=== PATIENT | male | born 2000 | race Caucasian/White ===

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

== ENCOUNTER 2020-06-30 12:51 | Observation (INO) | payer OTHER ==
[2020-06-30] MEDS ORDERED: ACETAMINOPHEN TAB 500 MG TAB PO STA (13:28)
[2020-06-30] MEDS ORDERED: SODIUM CHLORIDE 0.9% 1,000 ML IV STA (13:28)
[2020-06-30] MEDS ORDERED: VANCOMYCIN IV PER PHARMACY 1 EACH MISC MISCELLANE PRN (13:28)
[2020-06-30] MEDS ORDERED: KETOROLAC 15 MG/ML 1 ML VIAL IVP STA (13:29)
[2020-06-30] MEDS ORDERED: LIDOCAINE 1% INJ 10MG/ML (20 ML MDV) SQ ONE (13:30)
[2020-06-30] MEDS ORDERED: VANCOMYCIN 1,500 MG in SODIUM CHLORIDE 0.9% 250 ML IVPB STA (13:33)
--- NOTE | 2020-06-30 13:36 | ED ---
General Adult HPI - General Chief complaint: Skin/Abscess/Foreign Body Stated complaint: Abcess in armpit Time Seen by Provider: 06/30/20 13:07 Source: patient, RN notes reviewed, old records reviewed Mode of arrival: ambulatory Limitations: no limitations - History of Present Illness Initial comments: 19-year-old male with 2 days of pain and swelling in his right upper and right upper extremity. He does report fever and chills. He states this started as what he thought was an ingrown hair. He did attempt to remove with tweezers. He shaved his armpits. He's noticed swelling and erythema from the axilla to his elbow. - Related Data Home Medications Medication Instructions Recorded Confirmed No Known Home Medications 06/30/20 06/30/20 Allergies Allergy/AdvReac Type Severity Reaction Status Date / Time No Known Allergies Allergy Verified 06/30/20 13:32 Review of Systems ROS Statement: Those systems with pertinent positive or pertinent negative responses have been documented in the HPI. ROS Other: All systems not noted in ROS Statement are negative. Past Medical History Past Medical History: No Reported History History of Any Multi-Drug Resistant Organisms: None Reported Past Surgical History: No Surgical Hx Reported Past Psychological History: No Psychological Hx Reported Smoking Status: Never smoker Past Alcohol Use History: Rare Past Drug Use History: None Reported General Exam Limitations: no limitations General appearance: alert, in no apparent distress Head exam: Present: atraumatic, normocephalic Eye exam: Present: normal appearance, PERRL ENT exam: Present: normal exam Neck exam: Present: normal inspection. Absent: tenderness, meningismus Respiratory exam: Present: normal lung sounds bilaterally. Absent: respiratory distress, wheezes Cardiovascular Exam: Present: normal rhythm, tachycardia GI/Abdominal exam: Present: soft. Absent: distended, tenderness, guarding, rebound Extremities exam: Present: other (3 cm x 3 cm fluctuant abscess in the right axilla, there is cellulitis tracking from the abscess to the and his elbow with induration.) Neurological exam: Present: alert, oriented X3, CN II-XII intact. Absent: motor sensory deficit Psychiatric exam: Present: normal affect, normal mood Skin exam: Present: warm, dry Course Vital Signs 06/30/20 12:54 Temperature 101 F H Pulse Rate 128 H Respiratory 18 Rate Blood Pressure 137/75 O2 Sat by Pulse 99 Oximetry Procedures - Incision & Drainage Consent Obtained: written consent Indication: abscess Site: upper extremity Anesthetic Used: lidocaine 1% Amount (mLs): 5 I&D Cleaning Method: Alcohol Wipe Sterile Field Used?: Yes Scalpel Used: #11 Needle Aspiration Performed?: Yes Irrigation Performed?: No I&D Drainage Obtained: Pus, Blood Packing: Plain Culture Obtained?: Yes Medical Decision Making - Medical Decision Making 19-year-old male with a large abscess in his right axilla with cellulitis spreading from the abscess to beyond the elbow.abscess drained in the emergency department, IV antibiotics initiated. Patient is febrile, tachycardic, elevated white blood cell count. He will be admitted for close monitoring, continued IV antibiotics. Case has been discussed with Dr. Ortega Will Admit the patient. - Lab Data Result diagrams: 06/30/20 13:56 06/30/20 13:56 Lab Results 06/30/20 06/30/20 06/30/20 Range/Units 13:56 13:56 13:56 WBC 20.4 H (4.0-11.0) k/uL RBC 5.17 (4.30-5.90) m/uL Hgb 15.0 (13.0-17.5) gm/dL Hct 45.0 (39.0-53.0) % MCV 87.1 (80.0-100.0) fL MCH 28.9 (25.0-35.0) pg MCHC 33.2 (31.0-37.0) g/dL RDW 12.2 (11.5-15.5) % Plt Count 293 (150-450) k/uL Neutrophils % 86 % Lymphocytes % 8 % Monocytes % 4 % Eosinophils % 1 % Basophils % 1 % Neutrophils # 17.6 H (1.3-7.7) k/uL Lymphocytes # 1.6 (1.0-4.8) k/uL Monocytes # 0.8 (0-1.0) k/uL Eosinophils # 0.1 (0-0.7) k/uL Basophils # 0.2 (0-0.2) k/uL Sodium 135 L (137-145) mmol/L Potassium 3.8 (3.5-5.1) mmol/L Chloride 96 L (98-107) mmol/L Carbon Dioxide 27 (22-30) mmol/L Anion Gap 12 mmol/L BUN 10 (9-20) mg/dL Creatinine 0.94 (0.66-1.25) mg/dL Est GFR (CKD-EPI)AfAm >90 (>60 ml/min/1.73 sqM) Est GFR (CKD-EPI)NonAf >90 (>60 ml/min/1.73 sqM) Glucose 106 H (74-99) mg/dL Plasma Lactic Acid Edmundo 0.9 (0.7-2.0) mmol/L Calcium 10.1 (8.4-10.2) mg/dL Total Bilirubin 1.0 (0.2-1.3) mg/dL AST 30 (17-59) U/L ALT 21 (4-49) U/L Alkaline Phosphatase 92 (38-126) U/L Total Protein 8.3 H (6.3-8.2) g/dL Albumin 4.9 (3.5-5.0) g/dL Disposition Clinical Impression: Abscess, Cellulitis Disposition: ADMITTED IP TO THIS [facility] Condition: Stable Is patient prescribed a controlled substance at d/c from ED?: No Referrals: None,Stated [Primary Care Provider] - 1-2 days Decision to Admit Reason: Admit from EC Decision Date: 06/30/20 Decision Time: 15:04
[2020-06-30 14:11] LABS: Basophils # (A) 0.2 k/uL (0-0.2); Basophils % (A) 1 %; Eosinophils # (A) 0.1 k/uL (0-0.7); Eosinophils % (A) 1 %; Lymphocytes # (A) 1.6 k/uL (1.0-4.8); Lymphocytes % (A) 8 %; MCH 28.9 pg (25.0-35.0); MCHC 33.2 g/dL (31.0-37.0); MCV 87.1 fL (80.0-100.0); Mean Platelet Volume 7.6; Monocytes # (A) 0.8 k/uL (0-1.0); Monocytes % (A) 4 %; Neutrophils # (A) 17.6 k/uL (1.3-7.7); Neutrophils % (A) 86 %; Platelet Count 293 k/uL (150-450); RBC 5.17 m/uL (4.30-5.90); RDW 12.2 % (11.5-15.5); WBC 20.4 k/uL (4.0-11.0)
[2020-06-30 14:22] LABS: ALT 21 U/L (4-49); AST 30 U/L (17-59); African American GFR (CKD) >90 (>60 ml/min/1.73 sqM); Albumin 4.9 g/dL (3.5-5.0); Alkaline Phosphatase 92 U/L (38-126); Anion Gap 12 mmol/L; Blood Urea Nitrogen 10 mg/dL (9-20); Calcium 10.1 mg/dL (8.4-10.2); Carbon Dioxide 27 mmol/L (22-30); Chloride 96 mmol/L (98-107); Glucose 106 mg/dL (74-99); Non-African American GFR(CKD) >90 (>60 ml/min/1.73 sqM); Potassium 3.8 mmol/L (3.5-5.1); Sodium 135 mmol/L (137-145); Total Protein 8.3 g/dL (6.3-8.2)
[2020-06-30] MEDS ORDERED: KETOROLAC 15 MG/ML 1 ML VIAL IVP PRN (15:00)
[2020-06-30] MEDS ORDERED: NALOXONE 0.4 MG/ML 1 ML VIAL IV PRN (15:00)
[2020-06-30] MEDS ORDERED: ACETAMINOPHEN TAB 325 MG TAB PO PRN (15:00)
[2020-06-30] MEDS: SODIUM CHLORIDE 0.9% 1,000 ML IV SCH (15:29)
[2020-06-30] MEDS ORDERED: HYDROcodone/APAP 5-325MG 1 EACH TAB PO PRN (16:17)
[2020-06-30] MEDS ORDERED: ONDANSETRON 4 MG/2 ML VIAL IVP PRN (16:17)
[2020-06-30] MEDS ORDERED: MELATONIN 3 MG TABLET PO PRN (16:17)
--- NOTE | 2020-06-30 16:47 | P.HPIM ---
History of Present Illness H&P Date: 06/30/20 Chief Complaint: arm pain Patient is a 19-year-old male with no significant past medical history who presented to the emergency department for right upper extremity swelling and pain of 2 days' duration. In the ER he underwent an extensive evaluation. His febrile to 101 on arrival. Blood work showed a white blood cell count 20.4. In the ER he had an abscess I&D from his right arm with return of 50-60 mL of purulent material and this was sent for culture. He was admitted for abscess and cellulitis with sepsis. Patient seen adn examined at bedside. He reports that 2 days ago he started noticing swelling and redness in his right axilla. Yesterday continued to wors en and he attempted to shave the armpit and use a diabetic syringe to drain the pus. He states that he has been feeling very tired and fatigued. He denies any fevers at home. He reports that he was using a heating pad and tried soaking bread in milk and placing on the area overnight. He reports IVDA use in the anticubital fossa approximately 1 week ago and was not sharing but was reusing needles. Review of Systems Pertinent positives and negatives as discussed in HPI, a complete review of systems was performed and all other systems are negative. Past Medical History Past Medical History: No Reported History History of Any Multi-Drug Resistant Organisms: None Reported Past Surgical History: No Surgical Hx Reported Past Psychological History: No Psychological Hx Reported Smoking Status: Vaper Past Alcohol Use History: Rare Past Drug Use History: Heroin, IV Drug Use - Past Family History Father Family Medical History: No Reported History Additional Family Medical History / Comment(s): Father is healthy Mother Family Medical History: No Reported History Additional Family Medical History / Comment(s): Mother is healthy Medications and Allergies Home Medications Medication Instructions Recorded Confirmed Type No Known Home Medications 06/30/20 06/30/20 History Allergies Allergy/AdvReac Type Severity Reaction Status Date / Time No Known Allergies Allergy Verified 06/30/20 13:32 Physical Exam Osteopathic Statement: *. No significant issues noted on an osteopathic structural exam other than those noted in the History and Physical/Consult. Vitals: Vital Signs Temp Pulse Resp BP Pulse Ox 06/30/20 12:54 101 F H 128 H 18 137/75 99 Intake and Output 1006/30/20 06/30/20 06:59 14:59 22:59 Other: Weight 72.575 kg General: non toxic, no distress, appears older than stated age Derm: redness right axilla right drained area with packing in place, erythema from right Axilla to right elbow no palpable veins in right axilla, warm, dry, multiple tattoos Head: atraumatic, normocephalic, symmetric Eyes: EOMI, no lid lag, anicteric sclera, pupils equal round reactive to light ENT: Nose and ears atraumatic, no thrush, no pharyngeal erythema, no lymphadenopathy Neck: No thyromegaly, no cervical lymphadenopathy, trachea midline, supple Mouth: no lip lesion, mucus membranes moist Cardiovascular: S1S2 reg, no murmur, positive posterior tibial pulse bilateral, no edema, capillary refill less than 2 seconds Lungs: clear to ascultation bilateral, no ronchi, no rales, no wheeze, no accessory muscle use Abdominal: soft, nontender to palpation, no guarding, no appreciable organomegaly, normal bowel sounds Ext: no gross muscle atrophy, muscle strength muscle strength 5 out of 5 in all 4 extremities, no contractures Neuro: CN II-XI grossly intact, light touch intact all 4 extremities, finger to nose within normal limits, Psych: Alert, oriented, appropriate affect Results CBC & Chem 7: 06/30/20 13:56 06/30/20 13:56 Labs: Abnormal Lab Results - Last 24 Hours (Table) 06/30/20 06/30/20 Range/Units 13:56 13:56 WBC 20.4 H (4.0-11.0) k/uL Neutrophils # 17.6 H (1.3-7.7) k/uL Sodium 135 L (137-145) mmol/L Chloride 96 L (98-107) mmol/L Glucose 106 H (74-99) mg/dL Total Protein 8.3 H (6.3-8.2) g/dL Thrombosis Risk Factor Assmnt - DVT/VTE Prophylaxis DVT/VTE Prophylaxis: Low risk, early ambulation encouraged Assessment and Plan Assessment: Right Axially abscess with surrounding cellulitis and sepsis - vanco - IVF - Pain control - monitor area of redness - packing in place - Await wound and blood culture - outline area of erythema. IVDA - Abstain from drug use - info on safe needle practices - check Hep profile and HIV The patient is admitted with an anticipated greater than 2 midnight stay for evaluation of Abscess and cellulitis with sepsis. Surrogate decision-maker: mother CODE STATUS:full DVT prophylaxis: scds Discussed with: patient, nursing, ED physician Anticipated discharge date: in 2-[address]: home A total of 65 minutes was spent on the care of this complex patient more than 50% of the time was spent in counseling and care coordination.
[2020-06-30] MEDS: MORPHINE SULFATE 4 MG/ML SYRINGE IV PRN (21:23)
[2020-06-30] MEDS: VANCOMYCIN 1,250 MG in SODIUM CHLORIDE 0.9% 250 ML IVPB SCH (23:54)
[2020-07-01 01:43] LABS: Hepatitis A Antibody IgM Non-Reactive (Non-Reactive); Hepatitis B Core IgM Non-Reactive (Non-Reactive); Hepatitis B Surface Antigen Non-Reactive (Non-Reactive); Hepatitis C IgG Antibody Non-Reactive (Non-Reactive)
[2020-07-01 01:48] LABS: HIV 2 AB Non-Reactive (Non-Reactive); HIV AB P24 Non-Reactive (Non-Reactive); HIV P24 AG Non-Reactive (Non-Reactive)
[2020-07-01] MEDS: MORPHINE SULFATE 4 MG/ML SYRINGE IV PRN (02:35)
[2020-07-01] MEDS: SODIUM CHLORIDE 0.9% 1,000 ML IV SCH ×2 (02:39→09:35)
[2020-07-01 05:46] VITALS: BP 120/80; PULSE 95; RESP 18; TEMP 98.1
[2020-07-01 06:32] LABS: HCT 40.5 % (39.0-53.0); HGB 13.4 gm/dL (13.0-17.5); MCH 29.1 pg (25.0-35.0); MCV 88.1 fL (80.0-100.0); Mean Platelet Volume 8.2; Platelet Count 218 k/uL (150-450); RDW 12.4 % (11.5-15.5); WBC 9.9 k/uL (4.0-11.0)
[2020-07-01 08:44] LABS: African American GFR (CKD) >90 (>60 ml/min/1.73 sqM); Anion Gap 7 mmol/L; Blood Urea Nitrogen 8 mg/dL (9-20); Calcium 8.9 mg/dL (8.4-10.2); Carbon Dioxide 25 mmol/L (22-30); Chloride 102 mmol/L (98-107); Glucose 92 mg/dL (74-99); Magnesium 1.9 mg/dL (1.6-2.3); Non-African American GFR(CKD) >90 (>60 ml/min/1.73 sqM); Phosphorus 3.9 mg/dL (2.5-4.5); Sodium 134 mmol/L (137-145)
[2020-07-01 09:00] LABS: Potassium 3.9 mmol/L (3.5-5.1)
[2020-07-01] MEDS: VANCOMYCIN 1,250 MG in SODIUM CHLORIDE 0.9% 250 ML IVPB SCH (09:34)
--- NOTE | 2020-07-01 10:06 | P.PN ---
Subjective Progress Note Date: 07/01/20 Principal diagnosis: right arm pain and redness Patient is a 19-year-old male with no significant past medical history who presented to the emergency department for right upper extremity swelling and pain of 2 days' duration. In the ER he underwent an extensive evaluation. His febrile to 101 on arrival. Blood work showed a white blood cell count 20.4. In the ER he had an abscess I&D from his right arm with return of 50-60 mL of purulent material and this was sent for culture. He was admitted for abscess and cellulitis with sepsis. His wick came out overnight on 06/30/2020. His WBC count improved. Patient seen and examined at bedside. Reports that his packing fell out when his was in bed using a heat pack and remained out all night. It remained out all night. He reports that he denies chest pain, shortness of breath, or nausea. Right axially not draining with fluctuance and erythema. Washed with sterile saline and return of 30 cc of purulent fluid on return. Iodoform Gauze placed to keep pocket from resealing. 3 General: non toxic, no distress, appears at stated age Derm: Erythema and fluctuance of right axilla with erythema to elbow, warm, dry Head: atraumatic, normocephalic, symmetric Eyes: EOMI, no lid lag, anicteric sclera Mouth: no lip lesion, mucus membranes moist Cardiovascular: S1S2 reg, no murmur, positive posterior tibial pulse bilateral, Lungs: CTA bilateral, no rhonchi, no rales , no accessory muscle use Abdominal: soft, nontender to palpation, no guarding, no appreciable organomegaly Ext: no gross muscle atrophy, no edema, no contractures Neuro: CN II-XI grossly intact, no focal neuro deficits Psych: Alert, oriented, appropriate affect Right Axially abscess with surrounding cellulitis and sepsis - vanco - IVF - Pain control - monitor area of redness - packing in place - Await wound and blood culture - outline area of erythema. - Bactrim was sent to [facility] as patient is leaving AMA IVDA - Abstain from drug use - info on safe needle practices - check Hep profile and HIV Patient asking to be discharged today. I had a hailey conversation that it is his best interest to stay in the hospital. We discussed that leaving could results in worsening of infection, bacteremia, loss of limb and . He is insistent that he needs to leave for his son. I informed his it is not in his best interest and that I would fill and Rx and he will be signing out AMA DVT prophylaxis: scds Discussed with: patient, nursing Anticipated discharge date: today Anticipated discharge place: AMA A total of 65 minutes was spent on the care of this complex patient more than 50% of the time was spent in counseling and care coordination. Objective - Vital Signs Vital signs: Vital Signs Temp 98.1 F 07/01/20 05:43 Pulse 95 07/01/20 05:43 Resp 18 07/01/20 05:43 BP 120/80 07/01/20 05:43 Pulse Ox 100 07/01/20 05:43 Intake & Output 06/30/20 07/01/20 07/01/20 18:59 06:59 18:59 Intake Total 1570 Balance 1570 Weight 72.575 kg Intake: Intake, IV Titration 1570 Amount Sodium Chloride 0.9% 1, 1320 000 ml @ 120 mls/hr IV . Q8H20M [facility] Rx#:[id number] Vancomycin 1,250 mg In 250 Sodium Chloride 0.9% 250 ml @ 125 mls/hr IVPB Q8HR [facility] Rx#:[id number] - Labs CBC & Chem 7: 07/01/20 05:53 07/01/20 05:53 Labs: Abnormal Lab Results - Last 24 Hours (Table) 06/30/20 06/30/20 07/01/20 Range/Units 13:56 13:56 05:53 WBC 20.4 H (4.0-11.0) k/uL Neutrophils # 17.6 H (1.3-7.7) k/uL Sodium 135 L 134 L (137-145) mmol/L Chloride 96 L (98-107) mmol/L BUN 8 L (9-20) mg/dL Creatinine 0.65 L (0.66-1.25) mg/dL Glucose 106 H (74-99) mg/dL Total Protein 8.3 H (6.3-8.2) g/dL Microbiology - Last 24 Hours (Table) 06/30/20 13:56 Gram Stain - Preliminary Axilla - Right Wound Culture - Preliminary
--- NOTE | 2020-07-01 10:10 | P.DS ---
Providers Date of admission: 06/30/20 15:04 Expected date of discharge: 07/01/20 Attending physician: Elsie Ortega DO Primary care physician: Stated None Hospital Course: Discharge Diagnosis: Left AMA Right Axillary abscess with surrounding cellulitis and sepsis IVDA Hospital Course: Patient is a 19-year-old male with no significant past medical history who presented to the emergency department for right upper extremity swelling and pain of 2 days' duration. In the ER he underwent an extensive evaluation. His febrile to 101 on arrival. Blood work showed a white blood cell count 20.4. In the ER he had an abscess I&D from his right arm with return of 50-60 mL of purulent material and this was sent for culture. He was admitted for abscess and cellulitis with sepsis. His wick came out overnight on 06/30/2020. His WBC count improved. Patient decieded to leave against medical advice consulted against this as lised in progress note same date. Physical exam as per progress note 07/01/2020. A total of 35 minutes of time were spent preparing this complex discharge summary . Patient Condition at Discharge: Stable Plan - Discharge Summary Discharge Rx Participant: No New Discharge Prescriptions: New Sulfamethox-Tmp 800-160Mg [Bactrim DS 800-160 mg] 1 tab PO Q12HR #14 tab Discharge Medication List Sulfamethox-Tmp 800-160Mg [Bactrim DS 800-160 mg] 1 tab PO Q12HR #14 tab 07/01/20 [Rx] Follow up Appointment(s)/Referral(s): None,Stated [Primary Care Provider] - 1-2 days Discharge Disposition: Left Against Medical Advice
== END 2020-07-01 10:25 | disposition left against medical advice (07) ==
LOC: EC 12:51 → INTOOBSV 15:04 → 6NMEDSUR 15:04 → UNDODISIN 07-01 10:25
PROVIDERS: ADMIT Internal Medicine; ATTEND Internal Medicine
DX: A41.9 Sepsis, unspecified organism (principal); L02.411 Cutaneous abscess of right axilla; L03.111 Cellulitis of right axilla; F19.10 Other psychoactive substance abuse, uncomplicated; F17.290 Nicotine dependence, other tobacco product, uncomplicated; Z53.29 Procedure and treatment not carried out because of patient's decision for other reasons
CPT/HCPCS: 96376; 96366 ×2; 96375; 96365; 96367; 99284; 10160; 36415; 80053; 80048; 80074; 83605; 83735; 84100; 85025; 85027; 87040; 87070; 87205; 87077; 87186; 87390; G0378 ×2; J3370 ×2; J2270 ×2; J2001; J0696; J1885

== ENCOUNTER 2023-12-18 04:38 | Emergency (ER) | payer OTHER ==
[2023-12-18 05:33] VITALS: PULSE 82
--- NOTE | 2023-12-18 05:55 | ED ---
Fall HPI - General Source: patient, RN notes reviewed, old records reviewed Mode of arrival: wheelchair Limitations: no limitations - History of Present Illness MD Complaint: fall -: hour(s) Fall From: from height (distance) (14 feet) When Fall Occurred: 1-3 hours [employer] Fall Witnessed: no Place Fall Occurred: home Loss of Consciousness: none Prolonged Down Time?: no Symptoms Prior to Fall: none Location - Extremities: Left: Ankle, Right: Ankle Severity: moderate Context: tripped/slipped Associated Symptoms: denies <Bart Card - Last Filed: 12/18/23 05:54> - General Source: patient, RN notes reviewed Mode of arrival: wheelchair Limitations: no limitations - History of Present Illness Complaint: fall <Petrona Sandhu - Last Filed: 12/18/23 10:10> - General Chief Complaint: Fall Stated Complaint: Sprained ankles, fentanyl use Time Seen by Provider: 12/18/23 06:10 - History of Present Illness Initial Comments: This is a 23-year-old male to the ER for evaluation of a significant fall. Patient jumped from a second story window about 15 feet onto the ground. Complaining of bilateral ankle pain. Patient jumped out of the apartment room window secondary to the police showing up due to an argument that was going on with him and his girlfriend. Patient complaining of severe leg pain and ankle pain (Bart Card) This is a 23-year-old male who presents to the emergency department for bilateral ankle pain. Patient states that he jumped out of a second story window onto the ground. He estimates this to be about 15 feet high. He was arguing with his girlfriend and the police showed up, and he was trying to run away from the police because he is on parole. Currently complaining of pain to the bilateral ankles. Denies hitting his head or any loss of consciousness. (Petrona Sandhu) - Related Data Previous Rx's Medication Instructions Recorded Sulfamethox-Tmp 800-160Mg [Bactrim 1 tab PO Q12HR #14 tab 07/01/20 DS 800-160 mg] Allergies Allergy/AdvReac Type Severity Reaction Status Date / Time No Known Allergies Allergy Verified 12/18/23 05:28 Review of Systems ROS Other: All systems not noted in ROS Statement are negative. <Bart Card - Last Filed: 12/18/23 05:54> ROS Other: All systems not noted in ROS Statement are negative. <Petrona Sandhu - Last Filed: 12/18/23 10:10> ROS Statement: Those systems with pertinent positive or pertinent negative responses have been documented in the HPI. Past Medical History Past Medical History: No Reported History History of Any Multi-Drug Resistant Organisms: MRSA Date of last positivie culture/infection: 06/30/20 MDRO Source:: AXILLA MRSA Past Surgical History: No Surgical Hx Reported Additional Past Surgical History / Comment(s): R foot injury with suturing as a child. Past Anesthesia/Blood Transfusion Reactions: No Reported Reaction Past Psychological History: No Psychological Hx Reported Smoking Status: Vaper Past Alcohol Use History: Rare Past Drug Use History: Heroin, IV Drug Use - Past Family History Father Family Medical History: No Reported History Additional Family Medical History / Comment(s): Father is healthy Mother Family Medical History: No Reported History Additional Family Medical History / Comment(s): Mother is healthy <Bart Card - Last Filed: 12/18/23 05:54> General Exam Limitations: no limitations General appearance: alert, in no apparent distress Head exam: Present: atraumatic, normocephalic, normal inspection Eye exam: Present: normal appearance, PERRL, EOMI. Absent: scleral icterus, conjunctival injection, periorbital swelling ENT exam: Present: normal exam, mucous membranes moist Neck exam: Present: normal inspection. Absent: tenderness, meningismus, lymphadenopathy Respiratory exam: Present: normal lung sounds bilaterally. Absent: respiratory distress, wheezes, rales, rhonchi, stridor Cardiovascular Exam: Present: regular rate, normal rhythm, normal heart sounds. Absent: systolic murmur, diastolic murmur, rubs, gallop, clicks GI/Abdominal exam: Present: soft, normal bowel sounds. Absent: distended, tend erness, guarding, rebound, rigid Extremities exam: Present: normal inspection, full ROM, normal capillary refill. Absent: tenderness, pedal edema, joint swelling, calf tenderness Back exam: Present: normal inspection Neurological exam: Present: alert, oriented X3, CN II-XII intact Psychiatric exam: Present: normal affect, normal mood Skin exam: Present: warm, dry, intact, normal color. Absent: rash <Bart Card - Last Filed: 12/18/23 05:54> Limitations: no limitations General appearance: alert, in no apparent distress Head exam: Present: atraumatic, normocephalic, normal inspection Respiratory exam: Present: normal lung sounds bilaterally. Absent: respiratory distress, wheezes, rales, rhonchi, stridor Cardiovascular Exam: Present: regular rate, normal rhythm, normal heart sounds. Absent: systolic murmur, diastolic murmur, rubs, gallop, clicks Extremities exam: Present: other (Generalized swelling to the bilateral ankles. No deformities. 2+ DP and PT pulses.) Neurological exam: Present: alert, oriented X3, CN II-XII intact Psychiatric exam: Present: normal affect, normal mood Skin exam: Present: warm, dry, intact, normal color. Absent: rash <Petrona Sandhu - Last Filed: 12/18/23 10:10> Course <Bart Card - Last Filed: 12/18/23 05:54> Vital Signs 12/18/23 12/18/23 05:18 08:36 Temperature 98.1 F 97.8 F Pulse Rate 82 82 Respiratory 18 16 Rate Blood Pressure 155/69 151/98 O2 Sat by Pulse 97 100 Oximetry - Reevaluation(s) Reevaluation #1: 12/18/23 05:55 Quick note is completed by me Dr. Reid, (Bart Card) Medical Decision Making - Radiology Data Radiology results: report reviewed, image reviewed <Petrona Sandhu - Last Filed: 12/18/23 10:10> - Medical Decision Making This is a 23-year-old male who presents to the emergency department for bilateral ankle pain. Was pt. sent in by a medical professional or institution? @ -No Did you speak to anyone other than the patient for history? @ -No Did you review nursing and triage notes? @ -I disagree with the aspect about the arm pain, patient states that all of his pain is in the ankles. Were old charts reviewed? @ -No Differential Diagnosis? @ -Differential Musculoskeletal: Muscular strain, contusion, ligament sprain, fracture, arthritis, septic arthritis, bursitis, cellulitis, muscle spasm, nerve compression, DVT, arterial occlusion, herpes zoster, electrolyte abnormality, tumor.... This is not meant to be in all inclusive list EKG interpreted by me (3pts min.)? @ -Not obtained X-rays interpreted by me (1pt min.)? @ -X-ray of the bilateral ankles obtained. My interpretation identifies no acute fractures. CT interpreted by me (1pt min.)? @ -Not obtained U/S interpreted by me (1pt. min.)? @ -Not obtained What testing was considered but not performed? (CT, X-rays, U/S, labs)? Why? @ -None What meds were considered but not given? Why? @ -None Did you discuss the management of the patient with other professionals? @ -No Did you reconcile home meds? @ -No Was smoking cessation discussed for >3mins.? @ -I discussed smoking cessation for greater than 3 minutes. The risk of smoking were discussed with the patient including but not limited to risks of c ancer, stroke, coronary artery disease and COPD. Also discussed with patient were multiple methods of quitting smoking. Lastly we discussed the financial cost of smoking. Was critical care preformed (if so, how long)? @ -No Were there social determinants of health that impacted care today? How? (Homelessness, low income, unemployed, alcoholism, drug addiction, transportation, low edu. Level, literacy, decrease access to med. care, care home, rehab)? @ -No Was there de-escalation of care discussed even if they declined? (Discuss DNR or withdrawal of care, Hospice)? @ -No What co-morbidities impacted this encounter? (DM, HTN, Smoking, COPD, CAD, Cancer, CVA, Hep., AIDS, mental health diagnosis, sleep apnea, morbid obesity)? @ -Smoking Was patient admitted / discharged? @ -Discharged. X-ray of the bilateral ankles obtained demonstrating mild anterior soft tissue swelling on both sides. There is slight asymmetric prominence to the lateral clear space on the right side that may reflect a high ankle sprain. Ibuprofen and Tylenol administered in the emergency department with improvement in symptoms. Patient was able to ambulate without difficulty. Advised ibuprofen and Tylenol as needed for pain relief, ice, and elevation. Patient discharged home in stable condition. Undiagnosed new problem with uncertain prognosis? @ -None Drug Therapy requiring intensive monitoring for toxicity (Heparin, Nitro, Insulin, Cardizem)? @ -None Were any procedures done? @ -None Diagnosis/symptom? @ -Ankle sprain Acute, or Chronic, or Acute on Chronic? @ -Acute Uncomplicated (without systemic symptoms) or Complicated (systemic symptoms)? @ -Uncomplicated Side effects of treatment? @ -None Exacerbation, Progression, or Severe Exacerbation] @ -Not applicable Poses a threat to life or bodily function? @ -No Return precautions reviewed in depth, the patient is instructed to return to the emergency department with any new, worsening, or concerning symptoms. Patient verbalized understanding. This case was discussed in detail with the attending ED physician, Dr. Sosa. Presentation, findings, and treatment plan discussed in detail as well. (Petrona Sandhu) Disposition <Bart Card - Last Filed: 12/18/23 05:54> Is patient prescribed a controlled substance at d/c from ED?: No Time of Disposition: 07:45 <Petrona Sandhu - Last Filed: 12/18/23 10:10> Clinical Impression: Ankle sprain, Nicotine dependence Disposition: HOME SELF-CARE Instructions (If sedation given, give patient instructions): Ankle Sprain (ED) Additional Instructions: Return to the emergency department with any new, worsening, or concerning symptoms. Alternate with ibuprofen and Tylenol as needed for pain relief. Apply ice for 10 to 15 minutes every 2-3 hours. Follow up with your primary care provider in 1-2 days. Referrals: None,Stated [Primary Care Provider] - 1-2 days
[2023-12-18] MEDS: IBUPROFEN 600 MG TAB PO STA (06:21)
[2023-12-18] MEDS: ACETAMINOPHEN TAB 500 MG TAB PO STA (06:21)
--- NOTE | 2023-12-18 07:26 | XR ---
EXAMINATION TYPE: XR ankle complete 3 views bilateral DATE OF EXAM: 12/18/2023 Comparison: None Clinical History: 23-year-old male jumping injury, pain Findings: Mild lateral soft tissue swelling on both sides. On the right mortise view, slight prominence to the lateral clear space. There may be mild anterior soft tissue swelling on both sides. Ankle mortise on the left appears intact. The lateral talar domes are intact. Smooth delineation of the Achilles tendo ns. Subtalar joints are aligned. Os peroneum on the left. No acute fracture, subluxation, dislocation is otherwise seen. Impression: Mild anterior soft tissue swelling on both sides. There is slight asymmetric prominence to the latera l clear space on the right side. Findings may reflect a high ankle sprain. Otherwise, no acute osseou s abnormality seen.
[2023-12-18 09:13] VITALS: BP 151/98; RESP 16; TEMP 97.8
== END 2023-12-18 08:45 | disposition home or self-care (01) ==
LOC: EC 04:38
DX: S93.401A Sprain of unspecified ligament of right ankle, initial encounter (principal); S93.402A Sprain of unspecified ligament of left ankle, initial encounter; F17.290 Nicotine dependence, other tobacco product, uncomplicated; W17.89XA Other fall from one level to another, initial encounter; Y92.009 Unspecified place in unspecified non-institutional (private) residence as the place of occurrence of the external cause
CPT/HCPCS: 99283; 99406

== ENCOUNTER 2024-08-24 15:26 | Emergency (ER) | payer MEDICARE ==
[2024-08-24 16:03] VITALS: BP 146/84; PULSE 117; RESP 18; TEMP 98.4
--- NOTE | 2024-08-24 16:31 | ED ---
Skin/Abscess/FB HPI - General Chief complaint: Skin/Abscess/Foreign Body Stated complaint: bump on stomach Time Seen by Provider: 08/24/24 16:05 Source: patient, RN notes reviewed Mode of arrival: ambulatory Limitations: no limitations - History of Present Illness Initial comments: 23-year-old male presents emergency department chief complaint of small bump on his lower abdomen. Patient states that he has tried squeezing there are small Monoprost that came out. Patient states because he swindled the swelling increased. Patient denies any fever or chills. Patient does have a history of skin infections. Patient offers no other complaints. - Related Data Previous Rx's Medication Instructions Recorded Sulfamethox-Tmp 800-160Mg [Bactrim 1 tab PO Q12HR #14 tab 07/01/20 DS 800-160 mg] Cephalexin [Keflex] 500 mg PO Q6HR #40 cap 08/24/24 Sulfamethox-Tmp 800-160Mg [Bactrim 1 each PO Q12HR #20 tab 08/24/24 Ds] Allergies Allergy/AdvReac Type Severity Reaction Status Date / Time No Known Allergies Allergy Verified 08/24/24 16:03 Review of Systems ROS Statement: Those systems with pertinent positive or pertinent negative responses have been documented in the HPI. ROS Other: All systems not noted in ROS Statement are negative. Past Medical History Past Medical History: No Reported History History of Any Multi-Drug Resistant Organisms: MRSA Date of last positivie culture/infection: 06/30/20 MDRO Source:: AXILLA MRSA Past Surgical History: No Surgical Hx Reported Additional Past Surgical History / Comment(s): R foot injury with suturing as a child. Past Anesthesia/Blood Transfusion Reactions: No Reported Reaction Past Psychological History: No Psychological Hx Reported Smoking Status: Vaper Past Alcohol Use History: Rare Past Drug Use History: None Reported - Past Family History Father Family Medical History: No Reported History Additional Family Medical History / Comment(s): Father is healthy Mother Family Medical History: No Reported History Additional Family Medical History / Comment(s): Mother is healthy General Exam Limitations: no limitations General appearance: alert, in no apparent distress Head exam: Present: atraumatic, normocephalic, normal inspection Cardiovascular Exam: Present: regular rate (Patient was nontachycardic on exam), normal rhythm, normal heart sounds. Absent: systolic murmur, diastolic murmur, rubs, gallop, clicks GI/Abdominal exam: Present: soft, normal bowel sounds, other (Lower abdomen 1 cm nonfluctuant erythematous probable early abscess). Absent: distended, tenderness, guarding, rebound, rigid Course Vital Signs 08/24/24 15:52 Temperature 98.4 F Pulse Rate 117 H Respiratory 18 Rate Blood Pressure 146/84 O2 Sat by Pulse 99 Oximetry Medical Decision Making - Medical Decision Making Was pt. sent in by a medical professional or institution (, [facility], CASH ACCOUNTING CLERK, urgent care, hospital, or half-way...) When possible be specific @ -No Did you speak to anyone other than the patient for history (EMS, parent, family, police, friend...)? What history was obtained from this source @ -No Did you review nursing and triage notes (agree or disagree)? Why? @ -I reviewed and agree with nursing and triage notes Were old charts reviewed (outside hosp., previous admission, EMS record, old EKG, old radiological studies, urgent care reports/EKG's, half-way records)? Report findings @ -No old charts were reviewed Differential Diagnosis (chest pain, altered mental status, abdominal pain women, abdominal pain men, vaginal bleeding, weakness, fever, dyspnea, syncope, headache, dizziness, GI bleed, back pain, seizure, CVA, palpatations, mental health, musculoskeletal)? @ -Abscess cellulitis EKG interpreted by me (3pts min.). @ -None X-rays interpreted by me (1pt min.). @ -None done CT interpreted by me (1pt min.). @ -None done U/S interpreted by me (1pt. min.). @ -None done What testing was considered but not performed or refused? (CT, X-rays, U/S, labs)? Why? @ -None What meds were considered but not given or refused? Why? @ -None Did you discuss the management of the patient with other professionals (professionals i.e. SUREK[facility] Starkey, CASH ACCOUNTING CLERK, lab, RT, psych nurse, social services, electronic scanner operator, teacher, armed custom protection officer, behavioral health case manager)? Give summary @ -No Was smoking cessation discussed for >3mins.? @ -No Was critical care preformed (if so, how long)? @ -No Were there social determinants of health that impacted care today? How? (Homelessness, low income, unemployed, alcoholism, drug addiction, transportation, low edu. Level, literacy, decrease access to med. care, correction, rehab)? @ -No Was there de-escalation of care discussed even if they declined (Discuss DNR or withdrawal of care, Hospice)? DNR status @ -No What co-morbidities impacted this encounter? (DM, HTN, Smoking, COPD, CAD, Cancer, CVA, ARF, Chemo, Hep., AIDS, mental health diagnosis, sleep apnea, morbid obesity)? @ -None Was patient admitted / discharged? Hospital course, mention meds given and route, prescriptions, significant lab abnormalities, going to OR and other pertinent info. @ -Discharge patient has early abscess nonfunctional discharged on oral antibiotics and warm compresses return parameters summer. Undiagnosed new problem with uncertain prognosis? @ -No Drug Therapy requiring intensive monitoring for toxicity (Heparin, Nitro, Insulin, Cardizem)? @ -No Were any procedures done? @ -No Diagnosis/symptom? @ -Lower abdominal abscess Acute, or Chronic, or Acute on Chronic? @ -Acute Uncomplicated (without systemic symptoms) or Complicated (systemic symptoms)? @ -Uncomplicated Side effects of treatment? @ -No Exacerbation, Progression, or Severe Exacerbation? @ -No Poses a threat to life or bodily function? How? (Chest pain, [place], AR, pneumonia, PE, COPD, DKA, ARF, appy, cholecystitis, CVA, Diverticulitis, Homicidal, Suicidal, threat to staff... and all critical care pts) @ -No Disposition Clinical Impression: Abscess Disposition: HOME SELF-CARE Condition: Stable Instructions (If sedation given, give patient instructions): Abscess (ED) Additional Instructions: Please return to the Emergency Department if symptoms worsen or any other concerns. Prescriptions: Sulfamethox-Tmp 800-160Mg [Bactrim Ds] 1 each PO Q12HR #20 tab Cephalexin [Keflex] 500 mg PO Q6HR #40 cap Is patient prescribed a controlled substance at d/c from ED?: No Referrals: None,Stated [Primary Care Provider] - 1-2 days Time of Disposition: 16:31
== END 2024-08-24 16:25 | disposition home or self-care (01) ==
LOC: EC 15:26
DX: L02.211 Cutaneous abscess of abdominal wall (principal); F17.290 Nicotine dependence, other tobacco product, uncomplicated
CPT/HCPCS: 99282